=== PATIENT | female | born 1970 | race Caucasian/White ===

== ENCOUNTER 2024-12-10 12:12 | Emergency (ER) | payer OTHER, SELFPAY ==
[2024-12-10 12:21] VITALS: BP 134/85
[2024-12-10 12:49] LABS: Hematocrit 35.7 % (37.0-47.0); Hemoglobin 12.1 g/dL (12.0-16.0); Mean Corp Hgb Conc. 33.9 g/dL (33.0-37.0); Mean Corpuscular Volume 92.7 fL (81.0-99.0); Nucleated Red Blood Cells % 0 %; Platelet Count 296 10^3/uL (130-400); Red Cell Dist. Width 12.4 % (11.5-14.5)
[2024-12-10 13:14] LABS: ALT (SGPT) 20 U/L (0-35); AST (SGOT) 26 U/L (14-36); Albumin 4.6 g/dl (3.5-5.0); Alkaline Phosphatase 60 U/L (38-126); Blood Urea Nitrogen 16 mg/dl (7-17); Calcium 10.3 mg/dl (8.4-10.2); Carbon Dioxide 26 mmol/L (22-30); Chloride 108 mmol/L (98-107); Glucose 148 mg/dl (70-99); Potassium 4.0 mmol/L (3.5-5.1); Sodium 140 mmol/L (135-145); Total Protein 7.3 g/dl (6.3-8.2); eGFR > 60.00
[2024-12-10 13:23] LABS: Troponin I < 0.012 ng/ml
--- NOTE | 2024-12-10 15:54 | ED.GENMED ---
History of Present Illness
General
Chief Complaint: Headache
Source: patient
Exam Limitations: none
Time Seen by Provider: 12/10/24 15:53
Nursing documentation reviewed up to this point in time: agreed with
History of Present Illness
History of Present Illness:
Patient is a 51-year-old female past medical history of hypertension hyperlipidemia presents to the ER for evaluation. She has a history of having pinched nerves and neck stiffness in her past and reports several days ago on December 05 started with
soreness to her left neck and felt like she was getting a pinched nerve again. She denies any trauma/injury. On December 06 however pain increased and has been worse since then. She reports it is the same type of pain as her previous pain but worse.
She feels it radiating up to her head and down her left back left hand and left arm. and then into her left leg. she felt a little weaker just in her left hand earlier today but that has since resolved.
She does have a history of sciatica as well and feels that everything is acting up she has taken naproxen Advil and Tylenol without relief.
She went to urgent care and while in urgent care stated that she felt that her left side of her face felt a little funny and that her eye felt a little droopy. She was sent here to the ER for evaluation
She denies any funny facial sensation now.
She denies any headache nausea vomiting. She denies any visual speech changes.
Review of Systems
Review of Systems
Allergies reviewed?: Yes
All Other Systems: ROS reviewed and negative except as documented in HPI and ROS
Phy Exam
General Physical Exam
General Presentation: no apparent distress
General age: appears stated age
General Skin: warm and dry
General Habitus: normal
General Mental: alert
General Hydration: appears well hydrated
Cardiovascular Exam
Cardiovascular Exam: regular rate/rhythm, no murmur and normal peripheral pulses
Pulmonary Exam
Pulmonary Exam: lungs clear and no respiratory distress
Neurological Exam
Neurological Exam: alert, oriented x3, no motor deficits, no sensory deficits and speech normal
NIH Stroke Score
Level of Consciousness: 0 - Alert
LOC questions: 0-Answers both correctly
LOC Commands: 0-Performs both correctly
Best Gaze: 0-Normal
Visual Archibald: 0=Normal, no visual loss
Facial palsy: 0=Normal, symmetrical
Motor - Right Arm: 0=No drift 10 seconds
Motor - Left Arm: 0=No drift 10 seconds
Motor - Right Le-No drift 5 seconds
Motor - Left Le-No drift 5 seconds
Limb Ataxia: 0-Absent
Sensation: 0-Normal
Best Language: 0-No aphasia
Dysarthria: 0-Normal
Extinction and Inattention: 0-No abnormality
Total Score:: 0
Shawanda Coma Scale
Eye Opening: Spontaneous
Verbal Response: Oriented
Motor Response: Obeys Commands
GCS Total Score: 15
Musculoskeletal Exam
Musculoskeletal Exam: full ROM
Skin Exam
Skin Exam: normal color and warm/dry
Psychiatric Exam
Psychiatric Exam: normal mood/affect
Course
Orders/Labs/Results
Orders:
Orders
12/10/24 12:26
ECG [Electrocardiogram (*1)] Urgent
Reason for Study: TIA/Stroke
EKG- Treatment ONCE
12/10/24 12:40
Complete Blood Count/With Diff Urgent
Comprehensive Metabolic Panel Urgent
Troponin I Urgent
12/10/24 13:00
CT Head W/o Iv Contrast Urgent
Comment:
Reason For Exam: LA/left side facial heaviness
12/10/24 16:25
Dexamethasone Sod Phosphate [Decadron] 10 mg IM NOW STA
Abnormal Lab Results
12/10/24
12:40
RBC 3.85 L 10^6/uL
(4.20-5.40)
Hct 35.7 L %
(37.0-47.0)
MCH 31.4 H pg
(27.0-31.0)
Chloride 108 H mmol/L
(98-107)
Glucose 148 H mg/dl
(70-99)
Calcium 10.3 H mg/dl
(8.4-10.2)
12/10/24 12:40
12/10/24 12:40
Vital Signs
Initial and Last Documented VS:
Initial Vital Signs
Temp Pulse Resp BP Pulse Ox
98.2 F 68 18 134/85 96
12/10/24 12:21 12/10/24 12:21 12/10/24 12:21 12/10/24 12:21 12/10/24 12:21
Last Documented Vital Signs
Temp Pulse Resp BP Pulse Ox
98.2 F 68 18 134/85 96
12/10/24 12:21 12/10/24 12:21 12/10/24 12:21 12/10/24 12:21 12/10/24 15:55
Civil Engineering Technician consulted with Physician
Civil Engineering Technician consulted with physician?: Yes (Curt )
Name of Physician Consulted: Curt
MDM/Problems Addressed
Differential Diagnosis Includes:
Not limited to sciatica, radicular pain radiculopathy/muscle strain muscle pain, pinched nerve
MDM/Problems Addressed:
On exam patient presents awake alert no acute distress symptoms are consistent with radicular type symptoms. She has no neurological deficit on exam. She has normal sensation to her face no droop normal strength to bilateral upper lower
extremities. No prior history of stroke. Pain in her neck presenting like her typical pinched nerve pain that is radiating to her left upper extremity and left leg discomfort presenting like her typical sciatica pain. She has tried naproxen
Tylenol Motrin etc.
Prior to my exam patient had a CAT scan which was unremarkable, her labs are unremarkable.
Case reviewed with ED physician Dr. Durbin who agrees with assessment and plan .
No concerning symptoms of stroke /TIA patient's predominant symptom is pain which radiates from her neck. No recent trauma visual changes etc. not concerning for vertebral dissection.
Will DC with steroids and Flexeril
Chronic conditions affecting care:
Hypertension medicated hyperlipidemia medicated
*Radiology
Radiology exam reviewed: radiology read reviewed
*Pulse Oximetry
SaO2: 96
Oxygen Mode of Delivery: Room air
Patient hypoxic: no
*EKG
Interpreted by ED Provider?: Yes
Interpretation: abnormal
Comparison EKG: no comparison EKG present
Heart Rate: 73
Rate: normal
Rhythm: sinus
Ischemia: non-specific ST changes
*Critical Care Note
Total Time (30-74mins, 75-104mins- exclusive of procedures): Not Applicable
ED Attending Note
-
Portions of this chart may have been created with voice recognition software.� Occasional wrong word or��sound alike� substitutions may have occurred due to the inherent limitations of voice recognition software.
Discharge Plan
Departure
Patient Disposition: Home (Routine Discharge)
Date of Disposition: 12/10/24
Time of Disposition: 16:31
Patient with high blood pressure during this ER visit?: Yes
Covid-19: Not Applicable
Discharge Problem:
Radiculopathy
Instructions: Radiculopathy of the neck and back (including sciatica), BLOOD PRESSURE
Prescriptions:
New
prednisone 10 mg Tablet
See Rx Instructions .ROUTE .COMPLEX Qty: 30 0RF
Rx Instructions:
Take By Mouth:
40 mg daily x3 days, 30 mg daily x3 days,
20 mg daily x3 days, 10 mg daily x3 days.
cyclobenzaprine 10 mg tablet
10 mg PO TID PRN (Reason: pain) Qty: 10 0RF
Activity Restrictions/Additional Instructions:
As discussed start prednisone taper tomorrow .you were given the first dose here in the ER.
You may continue to take Tylenol as needed.
You may take muscle relaxer as needed as well. This will cause drowsiness. No driving or drinking alcohol while taking this medication. Medications were sent to your pharmacy. Follow-up with family doctor in the next several days.
return if any worsening of symptoms
Interventions
Interventions:
*Risk Screen - Suicide Last Done: 12/10/24 12:21
*Neglect/Abuse Screening Last Done: 12/10/24 12:21
Discharge Date and Time
Print Language: URDU
[2024-12-10] MEDS: DECADRON 10 MG IM (16:29)
[2024-12-10 16:54] VITALS: BP 127/68
== END 2024-12-10 16:58 | disposition home or self-care (01) ==
LOC: EMR 12:12
PROVIDERS: Emergency Medicine; EMERGENCY PHYSICIAN Emergency Medicine; FAMILY PHYSICIAN Family Medicine
DX: M54.10 Radiculopathy, site unspecified (principal); R51.9 Headache, unspecified; I10 Essential (primary) hypertension; E78.00 Pure hypercholesterolemia, unspecified
CPT/HCPCS: 99284; 96372; 70450; 80053; 84484; 85025; 93005